=== PATIENT | male | born 2000 | race Caucasian/White ===

== ENCOUNTER 2020-02-24 00:13 | Emergency (ER) | payer OTHER ==
[2020-02-24] MEDS ORDERED: HYDROmorphone 1 MG/ML Syringe IM ONE (00:27)
--- NOTE | 2020-02-24 00:32 | EDM.PDOC ---
ED HPI GENERAL MEDICAL PROBLEM - General Chief Complaint: Upper Extremity Injury/Pain Stated Complaint: INJURED RIGHT ARM Time Seen by Provider: 02/24/20 00:15 Source of Information: Reports: Patient History Limitations: Reports: No Limitations - History of Present Illness INITIAL COMMENTS - FREE TEXT/NARRATIVE: 19-year-old male about 1 week wrestling when he felt a pop in his right arm. He has intense pain just above the elbow. Normal sensation of the hand. 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 Onset: Sudden Duration: Hour(s): (1 hour ago) Location: Reports: Upper Extremity, Right Associated Symptoms: Reports: No Other Symptoms right arm Pain Score (Numeric/FACES): 9 - Related Data Allergies Allergy/AdvReac Type Severity Reaction Status Date / Time amoxicillin Allergy Rash Verified 02/24/20 00:29 Home Meds: Home Meds NK [No Known Home Meds] 02/24/20 [History] Review of Systems - Review of Systems Review Of Systems: See Below Constitutional: Denies: Fever Respiratory: Denies: Shortness of Breath Cardiovascular: Denies: Chest Pain Skin: Reports: Pallor, Diaphoresis Neurological: Reports: Dizziness Psychiatric: Reports: Anxiety ED EXAM, GENERAL - Physical Exam Exam: See Below Exam Limited By: No Limitations General Appearance: Alert, Moderate Distress Head: Atraumatic Neck: Supple Respiratory/Chest: No Respiratory Distress Extremities: Other (Exquisitely tender to palpation around the distal humerus on the right side, some soft tissue swelling is present but no bruising) Neurological: Alert, Oriented, Other (Distal sensation of the right arm is intact) Psychiatric: Anxious Skin Exam: Warm, Dry Course - Vital Signs Last Recorded V/S: Last Vital Signs Temp 97.9 F 02/24/20 00:29 Pulse 67 02/24/20 00:29 Resp 21 H 02/24/20 00:29 BP 113/72 02/24/20 00:29 Pulse Ox 100 02/24/20 00:29 - Orders/Labs/Meds Meds: Medications Discontinued Medications Generic Name Dose Route Start Last Admin Trade Name Freq PRN Reason Stop Dose Admin Hydromorphone HCl 1 mg 02/24/20 00:27 02/24/20 00:36 Dilaudid IM 02/24/20 00:28 1 mg ONETIME ONE Administration Ketorolac Tromethamine 60 mg 02/24/20 01:20 02/24/20 01:38 Toradol IM 02/24/20 01:21 60 mg ONETIME ONE Administration - Re-Assessments/Exams Free Text/Narrative Re-Assessment/Exam: 02/24/20 00:31 A right humerus will be obtained. Patient was given 1 mg of IM Dilaudid. 02/24/20 01:23 A displaced spiral right humerus fracture was seen on the x-ray. Placed in a long-arm posterior Ortho-Glass splint and sling. He was given 160 mg injection of Toradol, and discharged with 10 additional doses along with 20 Percocet. A copy of the x-ray was given and he will recheck orthopedics early next week. No evidence of radial nerve palsy was seen on discharge. Departure - Departure Time of Disposition: 01:32 Disposition: Home, Self-Care 01 Clinical Impression: Right humeral fracture Qualifiers: Encounter type: initial encounter Humerus Location: shaft Fracture type: closed Fracture morphology: spiral Fracture alignment: displaced Qualified Code(s): S42.341A - Displaced spiral fracture of shaft of humerus, right arm, initial encounter for closed fracture - Discharge Information Instructions: Humerus Fracture Treated With Immobilization, [id number] Referrals: PCP,None [Primary Care Provider] - Forms: ED Department Discharge, ED Return to Work/School Form Care Plan Goals: Keep splint on and use sling to keep the arm still through the weekend. Take 1 dose of ketorolac 3 times a day and use Percocet for extra pain control. Recheck with orthopedics as soon as you are home. Return to the emergency room if you start developing numbness or weakness of the hand, especially the thumb or index finger. Sepsis Event Note (ED) - Evaluation Sepsis Screening Result: No Definite Risk - Focused Exam Vital Signs: Vital Signs Temp Pulse Resp BP Pulse Ox 02/24/20 00:29 97.9 F 67 21 H 113/72 100 02/24/20 00:23 97.9 F 67 21 H 113/72 100
--- NOTE | 2020-02-24 01:03 | CRLCR ---
Indication: Pain after injury Technique: Two views, 4 films Comparison: None Findings: Bones: Oblique comminuted fracture of the mid-diaphysis of the right humerus with 2 centimeters lateral displacement of the distal fracture fragment. Additional linear ossification at the margin of the right humeral head measuring 10 x 2 millimeters suspicious for an avulsion fragment. Joint spaces: No dislocation. Soft tissues: Mild soft tissue swelling. Dictated by Deondre Tan MD @ Feb 24 2020 1:00AM Signed by Dr. Deondre Tan @ Feb 24 2020 1:02AM
[2020-02-24] MEDS ORDERED: Ketorolac 60 MG/2 ML SDV IM ONE (01:20)
== END 2020-02-24 02:00 | disposition home or self-care (01) ==
LOC: JP.ED 00:13
DX: S42.341A Displaced spiral fracture of shaft of humerus, right arm, initial encounter for closed fracture (principal); R42 Dizziness and giddiness; F41.9 Anxiety disorder, unspecified; R61 Generalized hyperhidrosis; Z88.1 Allergy status to other antibiotic agents; X58.XXXA Exposure to other specified factors, initial encounter; Y93.72 Activity, wrestling
CPT/HCPCS: 29105; 73060; 96372; 99283; J1170; J1885